=== PATIENT | female | born 1970 | race Caucasian/White ===

== ENCOUNTER 2016-12-03 10:30 | Outpatient (CLI) | payer BC ==
--- NOTE | 2016-12-03 13:05 | ULT ---
ULTRASOUND ABDOMEN: Date: 12/03/16 HISTORY: Abdominal pain. FINDINGS: The liver, spleen, gallbladder, pancreas, kidneys, and visualized portions of the aorta and IVC appe ar normal. The common duct measures 4.0 mm in diameter. No free fluid is seen. The liver measures 14.4 cm, spleen 10.3 cm, right kidney 10.2 cm, and the left kidney measures 10.6 cm. IMPRESSION: Normal exam. POS: [facility]
== END 2016-12-03 10:31 | disposition home or self-care (01) ==
LOC: ULT 10:30
PROVIDERS: ATTEND Family Medicine
DX: R10.84 Generalized abdominal pain (principal)
CPT/HCPCS: 76700

== ENCOUNTER 2017-08-18 12:14 | Outpatient (CLI) | payer BC | END 2017-08-18 12:15 | disposition home or self-care (01) | LOC: BICMAMMO 12:14 | PROVIDERS: ATTEND Advanced Practice Midwife | DX: Z12.31 Encounter for screening mammogram for malignant neoplasm of breast (principal); L90.5 Scar conditions and fibrosis of skin; Z80.3 Family history of malignant neoplasm of breast | CPT/HCPCS: 77063; 77067 ==

== ENCOUNTER 2018-10-26 14:06 | Outpatient (CLI) | payer BC ==
--- NOTE | 2018-10-26 16:44 | ULT ---
LIMITED ULTRASOUND RIGHT BREAST: HISTORY: Asymmetry in the upper outer right breast on mammographic evaluation. COMPARISON: Additional views obtained on 10/26/2018 and prior mammograms obtained on 10/21/2018. FINDINGS: Limited sonographic evaluation of the upper outer right breast was preformed, which is in the locatio n of the mammographic abnormality noted on outside studies. There are several small, anechoic, cysti c lesions seen in the upper outer right breast, the largest demonstrating a small amount of internal echogenic material, at the 9 o'clock position, measuring 6 mm. This likely represents a small cyst w ith a small amount of internal debris. Additional smaller anechoic cystic structures are also seen, most suggestive of cysts. No solid mass or distortion is seen, based on sonographic evaluation. IMPRESSION: BI-RADS category 0-Incomplete assessment. Additional imaging is requested. Mammographic findings de monstrate suspicious focal asymmetric density in the upper right breast on the tomosynthesis images, which is less conspicuous on the CC projection or the additional views; however, given the appearance on screening mammographic evaluation, MRI is recommended for further evaluation, as no definite sono graphic finding is able to be delineated. The above findings were discussed with Dr. Hoda Pierce's nurse, at the time of this examination , on 10/26/2018 at 1607 hours. Breast MRI was recommended for further evaluation. CODE CR POS: [facility]
--- NOTE | 2018-10-27 06:48 | MMO ---
Right Breast MAMMO Unilat Diag DDI RT+ADARSH. CLINICAL HISTORY: Patient is 47 years old and is seen for additional evaluation requested from prior study. The patient has the following family history of breast cancer: maternal grandmother, 1950. The patient has no personal history of cancer. The patient has a history of left Excisional Biopsy in Jul, 2013 - benign. VIEWS: The views performed were: right craniocaudal spot compression; right mediolateral oblique spot compression; and right mediolateral with tomosynthesis. FILMS COMPARED: The present examination has been compared to prior imaging studies performed at [facility] on 10/21/2018, and at [facility] on 07/29/2016, 08/18/2017 and 10/26/2018. MAMMOGRAM FINDINGS: Outside mammogram shows a focal asymmetric density in the upper right breast. This area is less conspicuous on additional views compared to screening exam. This area is also difficult to definitively discern on the CC projection. Given the appearance on the screening 3D tomosynthesis images, MRI is recommended for further evaluation. IMPRESSION: FINDING IN THE RIGHT BREAST REQUIRES ADDITIONAL EVALUATION. BREAST MRI IS RECOMMENDED. FINDINGS DISCUSSED WITH LINO IN DR. MEHTA'S OFFICE ON 10/26/18. THE RESULTS OF THIS EXAM WERE SENT TO THE PATIENT. ACR BI-RADS Category 0 - Incomplete: Need additional imaging evaluation. [facility] will notify the patient of the need for additional imaging services. MAMMOGRAPHY NOTE: 1. A negative mammogram report should not delay a biopsy if a dominant of clinically suspicious mass is present. 2. Approximately 10% to 15% of breast cancers are not detected by mammography. 3. Adenosis and dense breasts may obscure an underlying neoplasm. Reported by: CLIF RUSH MD Electonically Signed: [id number]
== END 2018-10-26 14:07 | disposition home or self-care (01) ==
LOC: BICMAMMO 14:06
PROVIDERS: ATTEND Obstetrics & Gynecology
DX: R92.2 Inconclusive mammogram (principal)
CPT/HCPCS: G0279

== ENCOUNTER 2019-09-17 12:56 | Outpatient (CLI) | payer BC ==
--- NOTE | 2019-09-17 14:17 | CT ---
CT neck soft tissues with contrast: 09/17/2019 HISTORY: 48-year-old female with ICD-10: "K 11.20, submandibular sialadenitis" FINDINGS: Lung apices are grossly clear. Trachea and larynx are unremarkable. The submandibular, parotid, carot id, retropharyngeal, perivertebral, posterior cervical, parapharyngeal, business developer, and sublingual, spaces demonstrate no major pathology. No significant cervical lymphadenopathy by size criteria. No s olid or cystic neck mass. No sialolith or ductal ectasia. There are dilated veins around the bilateral submandibular glands, right greater than left. Bilateral tympanomastoid cavities and the lo wer portions of paranasal sinuses, are grossly clear. No destructive osseous lesions of the mandible. There are metallic pins or screws in the mandible at the levels of the mandibular angles an d rami and around the ligamentum. Lingual tonsil is diffusely enlarged. Adenoids are mildly enlarged. [place] tonsils are not significantly enlarged. IMPRESSION: 1. Metallic hardware in the mandible. 2. Hyperplasia of lingual tonsil and to a lesser degree adenoids. 3. Otherwise negative.
== END 2019-09-17 12:57 | disposition home or self-care (01) ==
LOC: SCSCT 12:56
PROVIDERS: ATTEND Otolaryngology Plastic Surgery within the Head & Neck
DX: K11.20 Sialoadenitis, unspecified (principal); J35.1 Hypertrophy of tonsils; Z96.7 Presence of other bone and tendon implants
CPT/HCPCS: 70491

== ENCOUNTER 2019-10-01 06:43 | Outpatient (CLI) | payer BC, OTHER ==
[2019-10-01 10:16] LABS: BHCG - Serum Negative (NEGATIVE); Pregs Control Background? CLEAR/WHITE (CLR/WHITE); Pregs Control Bar Appear? YES (CONTROL BAR)
[2019-10-02 12:28] LABS: SARS-CoV-2 MS2 Positive; SARS-CoV-2 N Gene Negative; SARS-CoV-2 S Gene Negative; SARS-CoV-2 by NAA Not Detected (NotDetected); SARS-CoV-2 orf1ab Negative
== END 2019-10-01 06:44 | disposition home or self-care (01) ==
LOC: LABBT 06:43
PROVIDERS: ATTEND Otolaryngology Plastic Surgery within the Head & Neck
DX: Z01.812 Encounter for preprocedural laboratory examination (principal); Z11.59 Encounter for screening for other viral diseases; K11.20 Sialoadenitis, unspecified; M26.609 Unspecified temporomandibular joint disorder, unspecified side; J35.01 Chronic tonsillitis; K11.1 Hypertrophy of salivary gland; H90.2 Conductive hearing loss, unspecified
CPT/HCPCS: 84703; 85014; 87635; U0003

== ENCOUNTER 2019-10-06 06:34 | Day surgery (SDC) | payer BC ==
[2019-09-29 12:36] VITALS: BMI 3671.2
[2019-10-06] MEDS ORDERED: Scopolamine 1.5 mg/72 hour Patch ONE (07:17)
[2019-10-06] MEDS ORDERED: Lidocaine 1% w/Epinephrine 1:100K 20 ML VIAL ONE (08:00)
[2019-10-06] MEDS ORDERED: Fentanyl 100 MCG/2 ML VIAL ONE ×5 (08:08→11:08)
[2019-10-06] MEDS ORDERED: Midazolam HCl 2 mg/2 ml Vial ONE (08:08)
[2019-10-06] MEDS ORDERED: Clindamycin/D5W 900 mg/50 ml Premix Bag ONE (08:41)
[2019-10-06] MEDS ORDERED: Glycopyrrolate 0.2 MG/ML 5 ML SYRINGE ONE (09:08)
[2019-10-06] MEDS ORDERED: Ondansetron PF 4 MG/2 ML Vial ONE (09:08)
[2019-10-06] MEDS ORDERED: Lidocaine 1% PF 5 ML VIAL ONE (09:08)
[2019-10-06] MEDS ORDERED: Dexamethasone 20 MG/5 ML VIAL ONE (09:08)
[2019-10-06] MEDS ORDERED: PROPOFOL 200 MG/20 ML VIAL ONE (09:08)
[2019-10-06] MEDS ORDERED: Rocuronium Bromide 10 MG/ML (10ML VIAL) ONE (09:08)
[2019-10-06] MEDS ORDERED: methylPREDNISolone Acetate 40 mg/ml Vial ONE (09:29)
[2019-10-06] MEDS ORDERED: Promethazine HCl 25 MG/ML VIAL ONE ×2 (11:08→12:28)
[2019-10-06] MEDS ORDERED: HYDROmorphone 0.5 MG/0.5 ML SYRINGE ONE (11:41)
[2019-10-06] MEDS ORDERED: Hydrocodone-Acetamin 15 ML UDCUP ONE (16:41)
--- NOTE | 2019-10-07 07:14 | OP ---
DATE OF PROCEDURE: 10/06/2019 PREOPERATIVE DIAGNOSES: 1. Right chronic submandibular gland sialadenitis. 2. Right chronic tonsillitis. POSTOPERATIVE DIAGNOSES: 1. Right chronic submandibular gland sialadenitis. 2. Right chronic tonsillitis. PROCEDURES PERFORMED: 1. Excision of right submandibular gland (transcervical approach). 2. Right tonsillectomy. ESTIMATED BLOOD LOSS: 10 mL. COMPLICATIONS: None. ANESTHESIA: GETA. DESCRIPTION OF PROCEDURE: The patient was taken to the operating room and placed supine on the table. General endotracheal anesthesia was obtained by the Anesthesia Staff. Tube was secured in the left lower lip. A shoulder roll was placed and the head was placed in gentle extension exposing the right neck area. An incision was made through skin, subcutaneous, and platysmal layer approximately 2 fingerbreadths below the angle of the mandible and mandible. The incision was then widened and dissection was carried immediately adjacent to the submandibular gland fascia. The facial vein was suture ligated and dissection was carried deep to this layer in order to protect the marginal mandibular nerve. The gland was then from its attachments to the digastric muscle and was inferiorly displaced. The postganglionic fibers from the lingual nerve were identified and were suture ligated immediately adjacent to the gland. Following this, the mylohyoid muscle was retracted anteriorly and the right lingual nerve and right hypoglossal nerve were kept in view while the submandibular duct was suture ligated with a 2-0 silk stitch as distal as possible. Following this, the wound was irrigated. A Valsalva maneuver was performed. There was no bleeding. A small drain was placed. The platysma layer was closed using 3-0 Monocryl stitches and subcuticular layer was closed using 4-0 Monocryl stitches. The skin was closed using Dermabond. The drain was noted to be working at the end of procedure. Following this, the [place] mouth gag was then introduced into the oral cavity and retracted. The remnant right tonsil crypts that made up the remnant of the patient's tonsil was grasped with a curved Allis clamp and a Bovie electrocautery was used to perform a subcapsular tonsillectomy on this right side. Following this, hemostasis was obtained. Cool saline was irrigated through the oral cavity. The patient tolerated the procedure well. Job ID: [id number]
== END 2019-10-06 17:00 | disposition home or self-care (01) ==
LOC: SDC 06:34
PROVIDERS: ATTEND Otolaryngology Plastic Surgery within the Head & Neck
PROC: 0CBG0ZZ Excision of Right Submaxillary Gland, Open Approach (ICD-10-PCS; principal; 2019-10-06)
PROC: 0CTPXZZ Resection of Tonsils, External Approach (ICD-10-PCS; principal; 2019-10-06)
DX: K11.20 Sialoadenitis, unspecified (principal); K11.1 Hypertrophy of salivary gland; J35.01 Chronic tonsillitis; M26.609 Unspecified temporomandibular joint disorder, unspecified side; H90.2 Conductive hearing loss, unspecified; I10 Essential (primary) hypertension; E78.00 Pure hypercholesterolemia, unspecified; K21.9 Gastro-esophageal reflux disease without esophagitis; F41.9 Anxiety disorder, unspecified; F32.9 Major depressive disorder, single episode, unspecified; E03.9 Hypothyroidism, unspecified; Z79.899 Other long term (current) drug therapy; Z88.1 Allergy status to other antibiotic agents; Z88.2 Allergy status to sulfonamides; Z88.5 Allergy status to narcotic agent; Z88.8 Allergy status to other drugs, medicaments and biological substances
CPT/HCPCS: 88304; 88305; 88307; 93005; 93010; J1100; J1170; J2250; J2405; J2550; J2704; J2920; J3010; J3490

== ENCOUNTER 2019-12-16 14:15 | Outpatient (CLI) | payer BC ==
--- NOTE | 2019-12-16 15:05 | MMO ---
Bilateral MAMMO Bilat Screen DDI+ADARSH. CLINICAL HISTORY: Patient is 49 years old and is seen for screening. The patient has the following family history of breast cancer: maternal grandmother, 1950. The patient has no personal history of cancer. The patient has a history of left Excisional Biopsy in Jul, 2013 - benign. VIEWS: The views performed were: bilateral craniocaudal with tomosynthesis and bilateral mediolateral oblique with tomosynthesis. FILMS COMPARED: The present examination has been compared to prior imaging studies performed at [facility] on 10/21/2018, and at [facility] on 10/26/2018 and 11/02/2018. This study has been interpreted with the assistance of computer-aided detection. MAMMOGRAM FINDINGS: There are scattered fibroglandular densities. Finding 1: There are stable benign appearing calcifications seen in both breasts. Finding 2: There is a stable area of architectural distortion with associated post-surgical scar seen in the left breast. There are no suspicious masses, suspicious calcifications, or new areas of architectural distortion. IMPRESSION: THERE IS NO MAMMOGRAPHIC EVIDENCE OF MALIGNANCY. A ROUTINE FOLLOW-UP MAMMOGRAM IN 1 YEAR IS RECOMMENDED. THE RESULTS OF THIS EXAM WERE SENT TO THE PATIENT. ACR BI-RADS Category 2 - Benign finding MAMMOGRAPHY NOTE: 1. A negative mammogram report should not delay a biopsy if a dominant of clinically suspicious mass is present. 2. Approximately 10% to 15% of breast cancers are not detected by mammography. 3. Adenosis and dense breasts may obscure an underlying neoplasm. Reported by: IFEANYI OSEI MD Electonically Signed: [id number]
== END 2019-12-16 14:16 | disposition home or self-care (01) ==
LOC: BICMAMMO 14:15
PROVIDERS: ATTEND Obstetrics & Gynecology
DX: Z12.31 Encounter for screening mammogram for malignant neoplasm of breast (principal); Z80.3 Family history of malignant neoplasm of breast; Z91.89 Other specified personal risk factors, not elsewhere classified
CPT/HCPCS: 77063; 77067

== ENCOUNTER 2021-02-09 15:21 | Outpatient (CLI) | payer BC | END 2021-02-09 15:22 | disposition home or self-care (01) | LOC: BICMAMMO 15:21 | PROVIDERS: ATTEND Obstetrics & Gynecology | DX: Z12.31 Encounter for screening mammogram for malignant neoplasm of breast (principal); Z80.3 Family history of malignant neoplasm of breast; Z80.41 Family history of malignant neoplasm of ovary; Z91.89 Other specified personal risk factors, not elsewhere classified | CPT/HCPCS: 77063; 77067 ==

== ENCOUNTER 2022-02-27 17:22 | Emergency (ER) | payer BC ==
[2022-02-27 18:32] LABS: #Eosinphils 0.2 thou/uL (0.0-0.7); #Lymphocytes 2.2 thou/uL (1.20-3.40); #Monocytes 0.7 thou/uL (0.11-0.59); #Neutrophils 4.8 thou/uL (1.40-6.50); %Basophils 0.2 % (0.0-1.0); %Eosinophils 3.1 % (0.0-10.0); %Lymphocytes 27.9 % (21.0-51.0); %Monocytes 8.6 % (0.0-10.0); %Neutrophils 60.2 % (42.0-75.0); Hemoglobin 13.1 g/dL (12.0-16.0); Mean Corpuscular HGB CONC 33.2 g/dL (32.0-36.0); Mean Corpuscular Hemoglobin 29.8 pg (27.0-31.0); Mean Corpuscular Volume 89.9 fl (78.0-98.0); Mean Platelet Volume 6.5 fL (7.4-10.4); Platelet Count 350 10x3/uL (130-400); Red Blood Cell (RBC) Count 4.39 mill/uL (4.20-5.40); White Blood Cell (WBC) Count 7.9 10x3/uL (4.8-10.8)
[2022-02-27 18:44] LABS: ALT (SGPT) 31 U/L (8-55); AST (SGOT) 27 U/L (5-34); Albumin 4.4 g/dL (3.5-5.0); Alkaline Phosphatase 86 U/L (40-110); Anion Gap 16 mmol/L (10-20); BUN (Urea Nitrogen) 8 mg/dL (9.8-20.1); Bilirubin, Total 0.5 mg/dL (0.2-1.2); Calc. Creatinine Clearance 0 mL/min (70-130); Calcium 9.3 mg/dL (7.8-10.44); Carbon Dioxide 24 mmol/L (22-29); Chloride 103 mmol/L (98-107); Estimated GFR 74; Globulin 3.1 g/dL (2.4-3.5); Glucose 122 mg/dL (70-105); Lipase 12 U/L (8-78); Potassium 4.1 mmol/L (3.5-5.1); Protein, Total 7.5 g/dL (6.0-8.3); Sodium 139 mmol/L (136-145)
[2022-02-27 18:53] LABS: Bilirubin Negative (Negative); Blood, Urine Negative (Negative); Clarity Turbid (Clear); Glucose, Urine (Dipstick) Normal (Negative); Ketone, Urine Negative (Negative); Leukocyte Negative Leu/uL (Negative); Nitrite Negative (Negative); Protein, Urine (Dipstick) Negative (Neg-Trace); Specific Gravity, Urine 1.007 (1.002-1.036); Urobilinogen Normal mg/dL (Less than 2); pH, Urine 6.5 (5.0-9.0)
== END 2022-02-27 20:41 | disposition home or self-care (01) ==
LOC: ERS 17:22
DX: R10.31 Right lower quadrant pain (principal); E03.9 Hypothyroidism, unspecified; Z95.9 Presence of cardiac and vascular implant and graft, unspecified
CPT/HCPCS: 74177; 80053; 81003; 83690; 84484; 85025

== ENCOUNTER 2022-04-22 15:14 | Outpatient (CLI) | payer BC | END 2022-04-22 15:15 | disposition home or self-care (01) | LOC: BICMAMMO 15:14 | PROVIDERS: ATTEND Obstetrics & Gynecology | DX: Z12.31 Encounter for screening mammogram for malignant neoplasm of breast (principal); Z91.89 Other specified personal risk factors, not elsewhere classified; Z80.3 Family history of malignant neoplasm of breast | CPT/HCPCS: 77063; 77067 ==

== ENCOUNTER 2023-04-24 14:03 | Outpatient (CLI) | payer BC | END 2023-04-24 14:04 | disposition home or self-care (01) | LOC: BICMAMMO 14:03 | PROVIDERS: ATTEND Obstetrics & Gynecology | DX: Z12.31 Encounter for screening mammogram for malignant neoplasm of breast (principal); Z80.3 Family history of malignant neoplasm of breast; Z91.89 Other specified personal risk factors, not elsewhere classified | CPT/HCPCS: 77063; 77067 ==

== ENCOUNTER 2025-01-24 12:14 | Emergency (ER) | payer BC ==
[2025-01-24 13:19] LABS: CAUTI Indications for Culture Dysuria,urgency,freq; Glucose, Urine (Dipstick) Normal (Negative); Leukocyte Negative Leu/uL (Negative); Protein, Urine (Dipstick) 50 mg/dL (Neg-Trace); RBC/HPF 0-3 HPF (0-3); Specific Gravity, Urine 1.022 (1.002-1.036)
[2025-01-24] MEDS ORDERED: Ondansetron PF 4 MG/2 ML Vial ONE (13:23)
[2025-01-24 13:31] LABS: Bacteria/HPF 1+ HPF (None Seen)
[2025-01-24 13:33] LABS: Urine Culture Reflex No No
[2025-01-24 14:07] LABS: BHCG - Serum Negative (NEGATIVE); Pregs Control Background? CLEAR/WHITE (CLR/WHITE); Pregs Control Bar Appear? YES (CONTROL BAR)
[2025-01-24 14:25] LABS: ALT (SGPT) 15 U/L (Less than 34); AST (SGOT) 31 U/L (11-34); Albumin 4.2 g/dL (3.1-4.5); Alkaline Phosphatase 90 U/L (40-110); Anion Gap 22 mmol/L (10-20); BUN (Urea Nitrogen) 20 mg/dL (9.8-20.1); Bilirubin, Total 0.6 mg/dL (0.3-1.2); Calc. Creatinine Clearance 0 mL/min (70-130); Calcium 9.5 mg/dL (7.8-10.44); Carbon Dioxide 17 mmol/L (22-29); Chloride 109 mmol/L (98-107); Globulin 4.3 g/dL (2.4-3.5); Glucose 123 mg/dL (70-105); Lipase 26 U/L (8-78); Magnesium 2.1 mg/dL (1.6-2.6); Potassium 4.5 mmol/L (3.5-5.1); Sodium 143 mmol/L (136-145)
[2025-01-24] MEDS ORDERED: Droperidol 5 MG/2 ML VIAL ONE (15:07)
[2025-01-24 15:48] LABS: #Basophils 0.04 10x3/uL (0.0-0.2); #Eosinophils 0.18 10x3/uL (0.0-0.7); #Monocytes 0.81 10x3/uL (0.11-0.59); #Neutrophils 7.33 10x3/uL (1.40-6.50); %Basophils 0.5 % (0.0-1.0); %Eosinophils 2.0 % (0.0-10.0); %Lymphocytes 4.7 % (21.0-51.0); %Monocytes 9.1 % (0.0-10.0); %Neutrophils 82.6 % (42.0-75.0); Hematocrit 45.4 % (36.0-47.0); Hemoglobin 14.4 g/dL (12.0-16.0); Mean Corpuscular Hemoglobin 28.1 pg (27.0-31.0); Mean Corpuscular Volume 88.7 fL (78.0-98.0); Platelet Count 266 10x3/uL (130-400); Red Blood Cell (RBC) Count 5.12 mill/uL (4.20-5.40); White Blood Cell (WBC) Count 8.88 10x3/uL (4.8-10.8)
== END 2025-01-24 16:29 | disposition home or self-care (01) ==
LOC: ERS 12:14
DX: R10.13 Epigastric pain (principal); R11.2 Nausea with vomiting, unspecified; I10 Essential (primary) hypertension
CPT/HCPCS: 80053; 81001; 83690; 83735; 84484; 84703; 85025; 93005; 96361; 96374; 96375; J1790; J2405